=== PATIENT | male | born 1940 | race Caucasian/White ===

== ENCOUNTER 2024-10-17 14:29 | Emergency (ER) | payer MEDICARE, OTHER ==
[2024-10-17] MEDS ORDERED: Sodium Chloride 0.9% 10 ML Syringe FLUSH PRN (14:45)
[2024-10-17 15:02] LABS: BASOPHILS ABSOLUTE AUTO 0.06 10^3/uL (0.00-0.10); BASOPHILS PERCENT AUTO 0.9 % (0.0-1.0); EOSINOPHILS ABSOLUTE AUTO 0.19 10^3/uL (0.10-0.30); EOSINOPHILS PERCENT AUTO 2.9 % (1.0-3.0); HEMOGLOBIN 13.1 g/dL (13.0-17.0); IMMATURE GRAN ABSOLUTE AUTO 0.01 10^3/uL (0.00-0.04); IMMATURE GRAN PERCENT AUTO 0.2 % (0.0-0.4); LYMPHOCYTES ABSOLUTE AUTO 2.43 10^3/uL (1.00-4.00); LYMPHOCYTES PERCENT AUTO 36.5 % (20.0-40.0); MEAN CORPUSCULAR HGB CONC 33.6 g/dL (32.0-36.0); MEAN CORPUSCULAR VOLUME 89.4 fL (82.0-92.0); MEAN PLATELET VOLUME 9.3 fL (7.4-10.4); MONOCYTES ABSOLUTE AUTO 0.56 10^3/uL (0.10-0.80); MONOCYTES PERCENT AUTO 8.4 % (2.0-8.0); NEUTROPHILS PERCENT AUTO 51.1 % (50.0-70.0); PLATELET COUNT,PLT 205 10^3/uL (150-400); RED BLOOD CELL COUNT 4.36 10^6/uL (4.50-6.00); RED CELL DISTRIBUTION WIDTH 12.2 % (11.5-14.5); WHITE BLOOD CELL COUNT,WBC 6.65 10^3/uL (5.00-10.00)
[2024-10-17 15:17] LABS: ALANINE AMINOTRANSFERASE,ALT 21 U/L (14-63); ALBUMIN 3.46 g/dL (3.40-5.00); ALKALINE PHOSPHATASE 73 U/L (46-116); ANION GAP 12.9 mmol/L (5-15); ASPARTATE AMNIOTRANSFERASE,AST 20 U/L (15-37); BILIRUBIN TOTAL 0.5 mg/dL (0.2-1.0); BLOOD UREA NITROGEN,BUN 18 mg/dL (7-18); CALCIUM 8.6 mg/dL (8.7-10.3); CARBON DIOXIDE,CO2 29.2 mmol/L (21.0-32.0); CHLORIDE,CL 104 mmol/L (98-107); CREATININE 1.02 mg/dL (0.51-1.17); GLUCOSE RANDOM 108 mg/dL (70-140); POTASSIUM,K 4.1 mmol/L (3.5-5.1); PROTEIN TOTAL,TP 6.6 g/dL (6.4-8.2); SODIUM,NA 142 mmol/L (136-145)
[2024-10-17 15:21] LABS: ESTIMATED GFR 72 mL/min (>=60)
[2024-10-17] MEDS: Sodium Chloride 0.9% 1,000 ML IV ONE (15:28)
== END 2024-10-17 16:42 | disposition home or self-care (01) ==
LOC: KA.ED 14:29
DX: H53.9 Unspecified visual disturbance (principal); R42 Dizziness and giddiness; Z88.0 Allergy status to penicillin; Z79.82 Long term (current) use of aspirin
CPT/HCPCS: 36415; 70450; 80053; 82947; 85025; 93005; 93010; 96360; 99284; 99285-25; J7030